=== PATIENT | male | born 1960 | race Caucasian/White ===

== ENCOUNTER → 2019-04-16 06:44 | Outpatient (CLI) | payer OTHER, SELFPAY ==
--- NOTE | 2019-04-16 | DI.ECHO.S_ITS ---
[facility]---------+ [facility] +---------+ : : [address] : [address] : : : : [id number] : : : : Phone: [phone]+ Echocardiogram Report + + :Name: EWA CERDA Study Date: 04/16/2019 Height: 70 in : :[facility] Exam Location: [place] Weight: 185 lb : : Gender: Male BSA: 2.0 m2 : :: 1960 Age: 59 yrs BP: 110/85 mmHg: :Reason For Study: Family H/O AAA/ History of pericarditis : :Ordering Physician: Lulú : :[place] Performed By: Shaylee Page : + + Interpretation Summary 1) Normal left ventricular thickness, size, wall motion, and systolic function (EF 55-60%). 2) Normal right ventricular size and function. 3) No significant valvular abnormalities. 4) The aortic root is mildly dilated at 4.2cm. The ascending aorta is mildly enlarged at 4.0cm. 5) No prior Echo available for comparison. Procedure: A two-dimensional transthoracic echocardiogram with color flow and Doppler was performed. The study quality was technically adequate. There is no prior echocardiogram noted for this patient. The patient was in normal sinus rhythm during the exam. The heart rate ranged between 56-65 bpm during the study. Left Ventricle: The left ventricle is normal in size, wall thickness, and systolic function without any focal wall motion abnormalities. The ejection fraction is estimated to be 55-60%. Diastolic parameters suggest probable normal left ventricular diastolic function and normal filling pressures. Right Ventricle: The right ventricle is normal in size and function. Atria: Both atria are normal in size. There is no Doppler evidence for an interatrial shunt. Mitral Valve: The mitral valve is normal in structure and function. There is trace mitral regurgitation. Aortic Valve: The aortic valve is trileaflet. The aortic valve opens well. There is no aortic valve stenosis. No aortic regurgitation is present. Tricuspid Valve: The tricuspid valve is normal in structure and function. There is trace tricuspid regurgitation. The right ventricular systolic pressure is estimated to be at least 22 mmHg based on an estimated right atrial pressure of 3 mm Hg. Pulmonic Valve: The pulmonic valve is not well seen, but is grossly normal. There is no pulmonic valvular regurgitation. Great Vessels: The aortic root is mildly dilated. The aortic arch is normal in size. The ascending aorta is mildly enlarged. The pulmonary artery is not well visualized, but is probably normal size. The IVC is of normal diameter and collapses greater than 50% with a sniff. This suggests a low right atrial pressure of 3 mm Hg. Pericardium/ Pleura There is no pericardial effusion. There is no pleural effusion. MMode/2D Measurements & Calculations LVIDd: 4.7 cm LVOT diam: 2.3 cm LVIDs: 3.1 cm Ao root diam: 4.2 cm FS: 32.9 % asc Aorta Diam: 4.0 cm EPSS: 0.06 cm Ao Arch Diam (Prox Trans): 3.0 cm IVSd: 0.73 cm LVPWd: 0.82 cm LV sanchez. diameter/BSA (cm/m^2): 2.3 LV sys. diameter/BSA (cm/m^2): 1.6 LA A2 area: 20.5 cm2 RA long axis: 5.5 cm LA A4 area: 22.2 cm2 RA area: 19.8 cm2 LA length (vol): 6.5 cm RA vol: 60.7 ml LA vol: 59.4 ml RA : 30.0 ml/m2 LA vol index: 29.4 ml/m2 IVC diam: 1.2 cm RVD1 (basal): 4.2 cm TAPSE: 2.5 cm Doppler Measurements & Calculations Ao V2 max: 100.9 cm/sec LVOT Max Joseph: 80.7 cm/sec Ao V2 mean: 74.7 cm/sec LV V1 max P.6 mmHg Ao max P.1 mmHg LV V1 VTI: 17.1 cm Ao mean P.4 mmHg MARCELLA(I,D): 3.4 cm2 Ao V2 VTI: 20.7 cm MARCELLA(V,D): 3.3 cm2 sev ratio: 0.83 MARCELLA indexed to BSA (cm^2/m^2): 1.7 MV E max joseph: 58.5 cm/sec TR max joseph: 217.5 cm/sec MV A max joseph: 46.2 cm/sec TR max P.9 mmHg MV E/A: 1.3 PA V2 max: 60.5 cm/sec Med Peak E' Joseph: 8.5 cm/sec PA V2 mean: 47.5 cm/sec E/E' med: 6.9 PA mean P.95 mmHg Lat Peak E' Joseph: 14.2 cm/sec PA Accel Time: 0.14 sec E/E' lat: 4.1 E/e' average: 5.5 MV dec time: 0.17 sec MV P1/2t: 50.5 msec MV P1/2t max joseph: 58.7 cm/sec SV(LVOT): 71.3 ml MVA(P12t): 4.4 cm2 Reading Physician:09:02 AM
--- NOTE | 2019-04-16 | DI.US.S_ITS ---
PROCEDURE: US ABD AORTA ANEURYSM SCREEN INDICATIONS: FAMILY HISTORY OF AAA Disease of pericardium TECHNIQUE: Real time scanning was performed of the aorta and iliac arteries, with image documentation. COMPARISON: None. FINDINGS: Aorta: Proximal aortic is obscured by overlying bowel gas. Mid-aorta measures 1 point cm. Distal aortic diameter is 1.5 cm. There may be mild aortic atherosclerosis. Iliac arteries: Right common iliac artery measures 0.7 cm. Left common iliac artery measures 0.7 cm. IMPRESSION: No evidence of abdominal aortic aneurysm. Dictated by: Dat Baig M.D. on 04/16/2019 at 9:02 Approved by: Dat Baig M.D. on 04/16/2019 at 9:08
== END ==
PROVIDERS: PCP Family Medicine; Visit Provider Family Medicine
DX: Z13.6 Encounter for screening for cardiovascular disorders (principal); I31.9 Disease of pericardium, unspecified; I77.89 Other specified disorders of arteries and arterioles; Z82.49 Family history of ischemic heart disease and other diseases of the circulatory system
CPT/HCPCS: 76706; 93306

== ENCOUNTER 2019-09-08 08:28 | Day surgery (SDC) | payer OTHER, SELFPAY ==
[2019-09-08 08:55] VITALS: BP 114/75; PULSE 93; RESP 14; TEMP 36.4; O2SAT 97; BMI 24.6
--- NOTE | 2019-09-08 10:06 | P.HP_ITS ---
History of Present Illness History of Present Illness Date Patient Seen: 09/08/19 Time Patient Seen: 10:06 Chief complaint: [id number] Narrative: Patient is a gentleman whose last colonoscopy was 7 years ago. He has a history of polyps. He is here for screening exam. Patient History Medical History Hyperlipemia (Acute) Family & Social History Social History: household members spouse Meds Home Medications and Allergies Home Medications Medication Instructions Recorded Confirmed Type multivitamin 1 tab PO DAILY 09/08/19 09/08/19 History sildenafil 50 mg PO DAILY PRN 09/08/19 09/08/19 History Allergies Allergy/AdvReac Type Severity Reaction Status Date / Time poison shelbi extract Allergy Verified 09/08/19 08:45 Review of Systems Review of Systems ROS Unobtainable: All systems reviewed & are unremarkable except as noted in HPI and below Exam Vital Signs (past 8 hours): - 09/08/19 08:55 Temperature 97.6 F Pulse Rate 93 H Respiratory Rate 14 Blood Pressure 114/75 Pulse Oximetry 97 Oxygen Delivery Method Room Air Narrative Exam Narrative: Pleasant cooperative patient no apparent distress. Lungs are clear to auscultation. No rales or rhonchi. Heart regular rate and rhythm no murmur gallop. Abdomen is soft nontender without mass. No obvious hernias. Patient is alert and oriented x3. Assessment & Plan Assessment & Plan narrative: The patient for a screening colonoscopy. I have d iscussed the procedure with them. Risks of bleeding, perforation which would necessitate major operation, failure to find remove all lesions, the potential tattoo were all discussed. All questions were answered. They wished to proceed. The patient does not desire sedation unless the procedure becomes too uncomfortable to tolerate. He has had 3 colonoscopies without it and will probably do fine. But he is willing to undergo some sedation if it becomes absolutely necessary in order to complete the procedure successfully.
--- NOTE | 2019-09-08 10:09 | PM.PREOP ---
Pre-operative Note Interval Note History & Physical reviewed/Exam performed by Physician: Yes Changes to H&P: No ASA Class (for procedural sedation): I
--- NOTE | 2019-09-08 10:21 | SUR.OPER ---
PATIENT REQUESTED NO SEDATION
[2019-09-08] MEDS: ATROPINE 1 MG/10 ML SYRINGE IV (10:26)
--- NOTE | 2019-09-08 10:29 | SUR.OPER ---
1026 PATIENT FELT NAUSEATED, GIVEN ATROPINE PULSE 60 ...PULSE 72 AT 1031
--- NOTE | 2019-09-08 10:43 | PM.OP.ENDO ---
Operative Date/Time/Diagnoses Date of procedure: 09/08/19 Time of procedure: 10:43 Pre-op diagnosis: Screening exam. History of polyps. Last colonoscopy 7 years ago. Post-op diagnosis: same (Normal exam today.) Procedure & Clinicians Study performed: Colonoscopy Same procedure as scheduled: Yes Indications: Screening Surgeon: Fletcher Nash Procedure Notes SCOAP/Timeout: Performed Procedure in detail: The patient was placed in the left lateral decubitus position and underwent IV sedation directed by the surgeon consisting of fentanyl and Versed. Digital exam was unremarkable. Prostate is normal. No masses.. The scope was inserted and advanced through the rectum into the sigmoid, descending, transverse, and ascending colon. No lesions were seen.. The cecum was reached identified by the ileocecal valve and the appendiceal opening. The ileocecal valve was successfully cannulated. The terminal ileum was normal in appearance. The scope was gradually brought out. No Polyps were found. The scope ultimately was retroflexed in the rectum. The appearance was normal. The scope was removed and the patient tolerated the procedure well. Prep was very good. Patient did become vasovagal during the procedure and was given atropine to successfully combat it. Scope withdrawal time: 8-1/2 minutes Sedation minutes: 0 (Patient declined sedation) Specimen(s): none sent Complications: none Post-procedure Recommendations: Colonscopy in 5 years Follow up: as needed Disposition: same day surgery
[2019-09-08 10:45] VITALS: BP 111/72; PULSE 88; RESP 20; TEMP 36.6; O2SAT 97
== END 2019-09-08 11:05 | disposition home or self-care (01) ==
PROVIDERS: PCP Family Medicine; Visit Provider Specialist
PROC: 0DJD8ZZ Inspection of Lower Intestinal Tract, Via Natural or Artificial Opening Endoscopic (ICD-10-PCS; CPT 45378; principal; 2019-09-08 09:45)
DX: Z12.11 Encounter for screening for malignant neoplasm of colon (principal); Z86.010 Personal history of colon polyps; E78.5 Hyperlipidemia, unspecified
CPT/HCPCS: 45378; J0461

== ENCOUNTER → 2024-07-01 11:38 | Outpatient (CLI) | payer OTHER, SELFPAY ==
--- NOTE | 2024-07-01 11:39 | DI.US.S_ITS ---
PROCEDURE: US CAROTID DOPPLER BI INDICATIONS: PAOD TECHNIQUE: Color and pulse Doppler interrogation was performed of both carotid systems, with image documentation and velocity measurements. COMPARISON: None. FINDINGS: Stenosis calculations are based on SRU (Society of Radiologists in Ultras[employer]) criteria. Right side: Brachial blood pressure: 93/56 mm Hg. Common carotid artery peak systolic velocity: 75 cm/sec. Internal carotid artery peak systolic velocity: 75 cm/sec. Internal carotid artery end diastolic velocity: 25 cm/sec. External carotid artery peak systolic velocity: 73 cm/sec. ICA/CCA peak systolic ratio: 1.0 . Robert scale imaging description: Mild plaque at the bifurcation Percent internal carotid artery stenosis: Less than 50% . Vertebral artery: Flow direction is antegrade. Left side: Brachial blood pressure: 96/61 mm Hg. Common carotid artery peak systolic velocity: 80 cm/sec. Internal carotid artery peak systolic velocity: 77 cm/sec. Internal carotid artery end diastolic velocity: 34 cm/sec. External carotid artery peak systolic velocity: 85 cm/sec. ICA/CCA peak systolic ratio: 0.9 . Robert scale imaging description: Mild plaque at bifurcation Percent internal carotid artery stenosis: Less than 50% Vertebral artery: Flow direction is antegrade. IMPRESSION: Less than 50% stenosis of the internal carotid arteries bilaterally. Dictated by: Nayeli Funez M.D. on 07/01/2024 at 16:06 Approved by: Nayeli Funez M.D. on 07/01/2024 at 16:08
== END ==
PROVIDERS: PCP Internal Medicine; Referring Provider Internal Medicine; Visit Provider Internal Medicine
DX: I73.9 Peripheral vascular disease, unspecified (principal); I65.23 Occlusion and stenosis of bilateral carotid arteries
CPT/HCPCS: 93880